=== PATIENT | male | born 1990 | race Caucasian/White ===

== ENCOUNTER 2023-02-14 05:09 | Emergency (ER) | payer MEDICAID ==
[~2023-02-14] VITALS: Ht 172.7 cm; Wt 109.1 kg
[2023-02-14 05:10] VITALS: BP 147/94
[2023-02-14] MEDS ORDERED: SERT-162 PO (07:27)
== END 2023-02-14 08:01 | disposition home or self-care (01) ==
LOC: EMS 05:12
DX: F15.90 Other stimulant use, unspecified, uncomplicated (principal); D35.2 Benign neoplasm of pituitary gland; F32.A Depression, unspecified; Z98.890 Other specified postprocedural states
CPT/HCPCS: 99283; Z7502